=== PATIENT | female | born 1980 ===

== ENCOUNTER 2017-05-24 09:58 | Day surgery (SDC) | payer OTHER ==
[2017-04-25 09:54] VITALS: BMI 34.7
[2017-05-24] MEDS ORDERED: Lactated Ringer's 500 ML IV ONE (10:23)
[2017-05-24] MEDS ORDERED: Propofol 10 mg/ml Inj (20 ML) ONE (10:46)
[2017-05-24 11:07] VITALS: TEMP 97.5; O2SAT 96
[2017-05-24 11:30] VITALS: BP 117/58; PULSE 71; RESP 22
== END 2017-05-24 11:31 | disposition home or self-care (01) ==
LOC: H.ENDO 09:58
PROVIDERS: ATTEND Internal Medicine Gastroenterology
DX: K25.9 Gastric ulcer, unspecified as acute or chronic, without hemorrhage or perforation (principal); K29.50 Unspecified chronic gastritis without bleeding; B96.81 Helicobacter pylori [H. pylori] as the cause of diseases classified elsewhere

== ENCOUNTER 2017-10-17 09:25 | Emergency (ER) | payer MEDICARE, OTHER ==
[2017-10-17 09:25] VITALS: BMI 34.7
[2017-10-17 09:39] VITALS: BP 157/96; PULSE 81; RESP 16; TEMP 98; O2SAT 100
--- NOTE | 2017-10-17 09:55 | ED PDOC ---
Upper Extremity Pain/Injury Time Seen by Provider: 10/17/17 09:38 Chief Complaint (Nursing): Upper Extremity Problem/Injury History Per: Patient Onset/Duration Of Symptoms: Days (2) Current Symptoms Are (Timing): Still Present Quality: Aching Severity: Moderate Pain Scale Rating Of: 4 Additional Complaint(s): Left shoulder pain 2 days. No injury. H/o SLE and fibromyalgia. Improves with Tramadol but doesn't want to take because of the way it makes her feel. No weakness or parsthesias. Past Medical History Vital Signs: Last Vital Signs Temp 98.0 F 10/17/17 09:36 Pulse 81 10/17/17 09:36 Resp 16 10/17/17 09:36 BP 157/96 H 10/17/17 09:36 Pulse Ox 100 10/17/17 09:36 - Medical History PMH: Asthma, Bipolar Disorder, Depression, Fibromyalgia, HTN, Sexually Transmitted Disease (HERPES SIMPLEX VIRUS) Denies: Colonic Polyps, Fractures Other PMH: SLE - Surgical History Surgical History: Denies: Endoscopy - Family History Family History: States: Unknown Family Hx - Home Medications Home Medications: Ambulatory Orders Medication Instructions Recorded Alprazolam 0.5 mg PO BID PRN 04/25/17 Famotidine 20 mg PO Q12 04/25/17 Fluoxetine HCl 40 mg PO DAILY 04/25/17 Gabapentin 300 mg PO TID 04/25/17 Hydroxychloroquine Sulfate 200 mg PO BID 04/25/17 Omeprazole 40 mg PO DAILY 04/25/17 Prednisone 10 mg PO DAILY 04/25/17 Quetiapine Fumarate [Seroquel] 100 mg PO HS 04/25/17 Tramadol HCl [Ultram] 50 mg PO QID PRN 04/25/17 amLODIPine [Norvasc] 5 mg PO DAILY 04/25/17 Prednisone 50 mg PO DAILY #5 tab 10/17/17 - Allergies Allergies/Adverse Reactions: Allergies Allergy/AdvReac Type Severity Reaction Status Date / Time No Known Allergies Allergy Verified 05/24/17 10:20 Review of Systems Constitutional: Negative for: Fever Cardiovascular: Negative for: Chest Pain Musculoskeletal: Positive for: Shoulder Pain Neurological: Negative for: Weakness, Numbness Physical Exam - Physical Exam Appears: Positive for: Non-toxic, No Acute Distress Skin: Positive for: Normal Color, Warm, DRY Pulses-Radial (L): 2+ Extremity: Positive for: Other (Left shoulder, no deformity. Tenderness ant. ROM limkited by pain when raising to horizontal.) Neurologic/Psych: Positive for: Alert, Oriented. Negative for: Motor/Sensory Deficits - ECG O2 Sat by Pulse Oximetry: 100 Disposition - Clinical Impression Clinical Impression: Exacerbation of systemic lupus erythematosus - Patient ED Disposition Is Patient to be Admitted: No Counseled Patient/Family Regarding: Studies Performed, Diagnosis, Need For Followup, Rx Given - Disposition Disposition: Routine/Home Disposition Time: 10:14 Condition: FAIR Prescriptions: Prednisone 50 mg PO DAILY #5 tab Instructions: Autoimmune Disease (ED) Forms: [employer] ([place])
--- NOTE | 2017-10-17 13:39 | CARD ---
APPROVED REPORT EKG Measurement Heart [id number] <Conclusion> Normal sinus rhythm Normal ECG
== END 2017-10-17 10:26 | disposition home or self-care (01) ==
LOC: H.ER 09:25
DX: M25.512 Pain in left shoulder (principal); M32.9 Systemic lupus erythematosus, unspecified
CPT/HCPCS: 81025; 93005; 96372; 99282; J1885